=== PATIENT | male | born 1990 | race Caucasian/White ===

== ENCOUNTER 2017-06-09 12:55 | Emergency (ER) | payer OTHER ==
[~2017-06-09] VITALS: Ht 165.1 cm; Wt 65.8 kg
[~2017-06-09 12:55] MED LIST: ACET500 PO; ALBIPROI INH; ALBU90OI INH; ALBU90OI61 INH; ATOM40; ATOM60; ATOM60 PO; AZIT200SU PO; AZIT500 PO; CEPH500 PO; CLAR500 PO; CLIN300 PO; CODACE30 PO; CODACEE120 PO; CYCL10; DOXY100 PO; ESCI10 PO; GUAI1200ER PO; HYDACE5 PO; IBUP600 PO; IBUP800 PO; IPRAOI; LEXAPRO; PRED15SY PO; PRED20 PO; PROM25 PO; RISP.25; RXALBOI INH; RXCODACET PO; RXHYDACE PO; SERT100; SULTRIDS PO; TRAZ50
[2017-06-09] MEDS ORDERED: ALBU90OI INH (14:20)
[2017-06-09] MEDS ORDERED: Cheratussin AC118 ML PO (14:20)
[2018-03-13] MEDS ORDERED: Cleocin HCl300 MG PO (00:49)
== END 2017-06-09 14:24 | disposition home or self-care (01) ==
LOC: ER 12:55
DX: R05 Cough (principal); Z88.2 Allergy status to sulfonamides; Z88.0 Allergy status to penicillin; F17.200 Nicotine dependence, unspecified, uncomplicated
CPT/HCPCS: 71046; 94640; 99283

== ENCOUNTER 2017-06-22 08:07 | Emergency (ER) | payer OTHER ==
[~2017-06-22] VITALS: Ht 162.6 cm; Wt 63.5 kg
[~2017-06-22 08:07] MED LIST changes: +Cheratussin AC118 ML PO
[2017-06-22] MEDS ORDERED: Norco 5-325 Ta1 EACH PO (09:24)
[2017-06-22] MEDS ORDERED: CEPH500 PO (09:24)
[2018-03-13] MEDS ORDERED: Cleocin HCl300 MG PO (00:49)
== END 2017-06-22 09:30 | disposition home or self-care (01) ==
LOC: ER 08:07
DX: S80.212A Abrasion, left knee, initial encounter (principal); S60.512A Abrasion of left hand, initial encounter; Z88.2 Allergy status to sulfonamides; Z88.0 Allergy status to penicillin; I50.9 Heart failure, unspecified; J45.909 Unspecified asthma, uncomplicated; F17.200 Nicotine dependence, unspecified, uncomplicated; V28.4XXA Motorcycle driver injured in noncollision transport accident in traffic accident, initial encounter
CPT/HCPCS: 73130; 73562-LT; 90471; 90714; 99283

== ENCOUNTER 2017-09-08 19:10 | Emergency (ER) | payer OTHER ==
[~2017-09-08] VITALS: Ht 180.3 cm; Wt 65.8 kg
[~2017-09-08 19:10] MED LIST changes: +Norco 5-325 Ta1 EACH PO
== END 2017-09-08 20:13 | disposition home or self-care (01) ==
LOC: ER 19:10
DX: S61.011A Laceration without foreign body of right thumb without damage to nail, initial encounter (principal); F17.210 Nicotine dependence, cigarettes, uncomplicated; J45.909 Unspecified asthma, uncomplicated; W26.8XXA Contact with other sharp object(s), not elsewhere classified, initial encounter
CPT/HCPCS: 12001; 90471; 90714; 99282

== ENCOUNTER 2017-10-15 00:56 | Emergency (ER) | payer OTHER | END 2017-10-15 01:38 | disposition left against medical advice (07) | LOC: ER 00:56 | DX: Z53.21 Procedure and treatment not carried out due to patient leaving prior to being seen by health care provider (principal) ==

== ENCOUNTER 2017-12-20 19:52 | Emergency (ER) | payer OTHER ==
[~2017-12-20] VITALS: Ht 180.3 cm; Wt 65.8 kg
[2017-12-20 20:33] LABS: Source, Urine Clean Catch
[2017-12-20 20:38] LABS: Appearance, Urine Clear (Clear); Blood, Urine Neg (Neg); Color, Urine Amber (P-Yellow); Glucose Qualitative, Urine Neg (Neg); Ketones, Urine 1+ (Neg); Leukocyte Esterase, Urine 1+ (Neg); Nitrite, Urine Pos (Neg); Protein, Urine 1+ (Neg); Specific Gravity, Urine 1.015 (1.003-1.022); Urobilinogen, Urine 4+ (Normal)
[2017-12-20 20:49] LABS: Bilirubin, Urine 2+ (Neg)
[2017-12-20 20:50] LABS: Amorphous Light (0-Heavy); Bacteria Few /hpf; Calcium Oxalate Crystals Few /hpf; Mucus Light (0-Heavy); Red Blood Cells, Urine Not Seen /hpf (0-2); Squamous Epithelial Cells Not Seen /hpf (Few)
[2017-12-20 20:51] LABS: BASOPHILS ABSOLUTE AUTO 0.05 K/mm3 (0.00-0.23); BASOPHILS PERCENT AUTO 1 % (0-2); EOSINOPHILS PERCENT AUTO 2 % (0-6); Hemoglobin 17.7 g/dL (13.5-17.5); IMMATURE GRAN ABSOLUTE AUTO 0.03 K/mm3 (0.00-0.10); IMMATURE GRAN PERCENT AUTO 0 % (0-1); LYMPHOCYTES ABSOLUTE AUTO 4.89 K/mm3 (0.84-5.20); LYMPHOCYTES PERCENT AUTO 56 % (21-46); MONOCYTES ABSOLUTE AUTO 0.88 K/mm3 (0.16-1.47); MONOCYTES PERCENT AUTO 10 % (4-13); Mean Corpuscular HGB 30.6 pg (26.0-34.0); Mean Corpuscular HGB Conc 34.7 g/dL (31.5-36.5); Mean Corpuscular Volume 88 fL (80-100); Mean Platelet Volume 11.2 fL (9.1-12.4); NEUTROPHILS ABSOLUTE AUTO 2.64 K/mm3 (1.96-9.15); NEUTROPHILS PERCENT AUTO 30 % (41-73); Platelet Count 109 K/mm3 (150-400); RDW Coefficient Variation 12.7 % (11.7-14.2); RDW Standard Deviation 41.4 fL (35.1-46.3); Red Blood Cell Count 5.79 M/mm3 (4.30-5.90); White Blood Cell Count 8.69 K/mm3 (4.00-11.30)
[2017-12-20 21:26] LABS: Albumin, Blood 3.4 g/dL (3.4-5.0); Albumin/Globulin Ratio 0.9 (0.8-1.8); Alk Phos 324 U/L (50-136); Anion Gap 7 mmol/L (6-16); Aspartate Aminotrans (AST/SGOT 616 U/L (12-37); Bilirubin, Total 2.9 mg/dL (0.1-1.0); Blood Urea Nitrogen 11 mg/dL (8-24); Bun/Creatinine Ratio 10.8 (12.0-20.0); CO2, Blood 28 mmol/L (21-32); Calcium, Blood 8.5 mg/dL (8.5-10.1); Chloride, Blood 102 mmol/L (98-108); Creatinine, Blood 1.02 mg/dL (0.60-1.20); Globulin, Blood 3.9 g/dL (2.2-4.0); Glomerular Filtration Rate >60 (60-); Glucose, Blood 61 mg/dL (70-99); Sodium, Blood 137 mmol/L (136-145); Total Protein, Blood 7.3 g/dL (6.4-8.2)
[2017-12-20 21:37] LABS: Alanine Aminotransfer (ALT/SGP 1285 U/L (12-78)
[2017-12-20] MEDS ORDERED: Cipro500 MG PO (23:47)
[2017-12-20] MEDS ORDERED: PROM25 PO (23:47)
[2017-12-22 12:27] LABS: HIV SCREEN 4TH GENERATION WRFX Non Reactive (Non Reactive)
[2017-12-23 02:16] LABS: HBSAG SCREEN Negative (Negative); HEP A AB, IGM Negative (Negative); HEP B CORE AB, IGM Negative (Negative); HEP C VIRUS AB >11.0 (0.0-0.9)
== END 2017-12-20 23:56 | disposition home or self-care (01) ==
LOC: ER 19:52
PROVIDERS: Emergency Medicine
DX: N30.90 Cystitis, unspecified without hematuria (principal); K75.9 Inflammatory liver disease, unspecified; J45.909 Unspecified asthma, uncomplicated; F17.200 Nicotine dependence, unspecified, uncomplicated; Z88.2 Allergy status to sulfonamides; Z91.030 Bee allergy status; Z88.0 Allergy status to penicillin
CPT/HCPCS: 36415; 76705; 80053; 80074; 81001; 83690; 85025; 87086; 87389; 99284-25

== ENCOUNTER 2018-05-27 02:45 | Emergency (ER) | payer OTHER ==
[~2018-05-27] VITALS: Ht 167.6 cm; Wt 70.3 kg
[~2018-05-27 02:45] MED LIST changes: +Cipro500 MG PO; +Cleocin HCl300 MG PO
== END 2018-05-27 03:23 | disposition left against medical advice (07) ==
LOC: ER 02:45
DX: Z53.21 Procedure and treatment not carried out due to patient leaving prior to being seen by health care provider (principal)
CPT/HCPCS: 99281

== ENCOUNTER 2018-11-07 15:21 | Emergency (ER) | payer OTHER ==
[~2018-11-07] VITALS: Ht 177.8 cm; Wt 65.8 kg
[2018-11-07] MEDS ORDERED: AZIT250 PO (17:28)
== END 2018-11-07 17:40 | disposition home or self-care (01) ==
LOC: ER 15:21
DX: J45.909 Unspecified asthma, uncomplicated (principal); J20.9 Acute bronchitis, unspecified; F17.210 Nicotine dependence, cigarettes, uncomplicated
CPT/HCPCS: 36415; 71046; 99283-25

== ENCOUNTER 2019-03-10 19:21 | Emergency (ER) | payer OTHER ==
[~2019-03-10] VITALS: Ht 175.3 cm; Wt 65.8 kg
[~2019-03-10 19:21] MED LIST changes: +AZIT250 PO
== END 2019-03-10 20:19 | disposition home or self-care (01) ==
LOC: ER 19:21
DX: S20.311A Abrasion of right front wall of thorax, initial encounter (principal); F17.200 Nicotine dependence, unspecified, uncomplicated; Z88.2 Allergy status to sulfonamides; Z91.030 Bee allergy status; Z88.0 Allergy status to penicillin; X58.XXXA Exposure to other specified factors, initial encounter
CPT/HCPCS: 99282

== ENCOUNTER 2019-04-21 22:48 | Emergency (ER) | payer OTHER ==
[~2019-04-21] VITALS: Ht 177.8 cm; Wt 68.0 kg
[2019-04-21] MEDS ORDERED: CLIN300 PO (23:04)
[2019-06-28] MEDS ORDERED: Cleocin HCl300 MG PO (03:02)
== END 2019-04-21 23:15 | disposition home or self-care (01) ==
LOC: ER 22:48
DX: K04.7 Periapical abscess without sinus (principal); K02.9 Dental caries, unspecified; F17.210 Nicotine dependence, cigarettes, uncomplicated; Z88.2 Allergy status to sulfonamides; Z91.030 Bee allergy status; Z88.0 Allergy status to penicillin
CPT/HCPCS: 99282

== ENCOUNTER 2020-07-07 08:38 | Inpatient (IN) | payer OTHER ==
[~2020-07-07] VITALS: Ht 177.8 cm; Wt 68.0 kg
[~2020-07-07 08:38] MED LIST changes: +DOXYCYCLINE HY200 MG PO
[2020-07-07 10:15] LABS: BASOPHILS ABSOLUTE AUTO 0.04 K/mm3 (0.00-0.23); BASOPHILS PERCENT AUTO 1 % (0-2); EOSINOPHILS ABSOLUTE AUTO 0.15 K/mm3 (0.00-0.68); EOSINOPHILS PERCENT AUTO 2 % (0-6); Hematocrit 51.6 % (37.0-53.0); Hemoglobin 17.2 g/dL (13.5-17.5); IMMATURE GRAN ABSOLUTE AUTO 0.02 K/mm3 (0.00-0.10); IMMATURE GRAN PERCENT AUTO 0 % (0-1); LYMPHOCYTES ABSOLUTE AUTO 2.02 K/mm3 (0.84-5.20); LYMPHOCYTES PERCENT AUTO 26 % (21-46); MONOCYTES ABSOLUTE AUTO 0.66 K/mm3 (0.16-1.47); MONOCYTES PERCENT AUTO 8 % (4-13); Mean Corpuscular HGB 30.3 pg (26.0-34.0); Mean Corpuscular HGB Conc 33.3 g/dL (31.5-36.5); Mean Corpuscular Volume 91 fL (80-100); NEUTROPHILS ABSOLUTE AUTO 4.98 K/mm3 (1.96-9.15); NEUTROPHILS PERCENT AUTO 63 % (41-73); RDW Coefficient Variation 12.6 % (11.7-14.2); RDW Standard Deviation 42.3 fL (35.1-46.3); Red Blood Cell Count 5.67 M/mm3 (4.30-5.90); White Blood Cell Count 7.87 K/mm3 (4.00-11.30)
[2020-07-07 10:19] LABS: Stool Occult Blood Guaiac 1 Pos (Neg)
[2020-07-07 10:21] LABS: Alanine Aminotransfer (ALT/SGP 33 U/L (12-78); Albumin, Blood 3.9 g/dL (3.4-5.0); Albumin/Globulin Ratio 0.9 (0.8-1.8); Alk Phos 75 U/L (50-136); Anion Gap 4 mmol/L (6-16); Aspartate Aminotrans (AST/SGOT 25 U/L (12-37); Bilirubin, Total 0.7 mg/dL (0.1-1.0); Blood Urea Nitrogen 12 mg/dL (8-24); Bun/Creatinine Ratio 12.7 (12.0-20.0); CO2, Blood 29 mmol/L (21-32); Calcium, Blood 8.8 mg/dL (8.5-10.1); Chloride, Blood 105 mmol/L (98-108); Creatinine, Blood 0.94 mg/dL (0.60-1.20); Globulin, Blood 4.3 g/dL (2.2-4.0); Glomerular Filtration Rate >60 (60-); Glucose, Blood 94 mg/dL (70-99); Potassium, Blood 3.9 mmol/L (3.5-5.5); Sodium, Blood 138 mmol/L (136-145); Total Protein, Blood 8.2 g/dL (6.4-8.2)
[2020-07-07 10:35] LABS: Platelet Count 44 K/mm3 (150-400)
[2020-07-07 10:39] LABS: Source, Urine Clean Catch
[2020-07-07 11:27] LABS: Appearance, Urine Clear (Clear); Bilirubin, Urine Neg (Neg); Blood, Urine Neg (Neg); Color, Urine Yellow (P-Yellow); Glucose Qualitative, Urine Neg (Neg); Ketones, Urine Neg (Neg); Leukocyte Esterase, Urine Neg (Neg); Nitrite, Urine Neg (Neg); Protein, Urine Neg (Neg); Specific Gravity, Urine 1.015 (1.003-1.022); Urobilinogen, Urine NORM (Normal)
[2020-07-07 13:19] LABS: Hematocrit 45.5 % (37.0-53.0); Hemoglobin 15.2 g/dL (13.5-17.5)
--- NOTE | 2020-07-07 17:58 | NUR ---
DISCUSSED EKG RESULTS AND PT STATUS WITH MILY DODD. NO NEW ORDERS AT THIS TIME WILL CTM.
--- NOTE | 2020-07-07 20:04 | NUR ---
SHIFT SUMMARY- PT ADMITTED THROUGH THE ED FOR RECTAL BLEED. PT NPO WITH PLAN FOR SCOPE TOMORROW PER REPORT FROM ED RN DR MCKEON VISITED THE PT IN THE ED. PT PASSING BLOODY STOOL WITH CLOTS IN IT. UPON ARRIVAL TO MEDICAL FLOOR A REVIEW OF THE PT VITALS SHOW HR 60'S ON ARRIVAL TO THE ED 50'S PRIOR TO ADMISSION AND A HR OF 44 UPON ARRIVAL TO MEDICAL FLOOR. SPOKE TO DR ECHAVARRIA BY PHONE AND RECIEVED ORDER FOR EKG AND TELE FOR THE PT TO MONITOR HR MORE CLOSELY. DR ECHAVARRIA CAME TO SEE THE PT PRIOR TO SHIFT CHANGE. PT IN BED CALL LIGHT IN REACH NO S&S OF DISTRESS NOTED AT THE TIME OF BEDSIDE RPEORT. PHOTOS TAKEN OF THE PT LEFT NASH SOME SORT OF RASH IS PRESENT THERE DR ECHAVARRIA IS AWARE. PASSED ALL ON IN REPORT TO NIGHT RN.
[2020-07-07 21:03] LABS: Hematocrit 48.1 % (37.0-53.0); Hemoglobin 16.1 g/dL (13.5-17.5)
--- NOTE | 2020-07-08 04:20 | NUR ---
BUILDING MOVER SUMMARY A/OX4, IND IN ROOM. CONTINUES TO HAVE BLOODY STOOLS WITH CLOTS PRESENT. DENIES PAIN OR SOB. PLAN IS TO HAVE SCOPE WITH DR. MCKEON THIS AFTERNOON. CURRENTLY NPO EXCEPT FOR SIPS AND CHIPS. VSS, NO ACUTE CHANGES AT THIS TIME. BED IN LOWEST POSITION WITH CALL LIGHT IN REACH. WILL CONTINUE TO MONITOR AND REPORT TO ONCOMING RN.
[2020-07-08 04:38] LABS: Influenza A, PCR Negative (NEGATIVE); Influenza B, PCR Negative (NEGATIVE); Resp Syncytial Virus, PCR Negative (NEGATIVE); SARS-Cov-2 (COVID-19) PCR, MMC Negative (NEGATIVE)
[2020-07-08 05:15] LABS: BASOPHILS ABSOLUTE AUTO 0.05 K/mm3 (0.00-0.23); BASOPHILS PERCENT AUTO 1 % (0-2); EOSINOPHILS ABSOLUTE AUTO 0.27 K/mm3 (0.00-0.68); EOSINOPHILS PERCENT AUTO 4 % (0-6); Hematocrit 45.9 % (37.0-53.0); Hemoglobin 15.6 g/dL (13.5-17.5); IMMATURE GRAN ABSOLUTE AUTO 0.02 K/mm3 (0.00-0.10); IMMATURE GRAN PERCENT AUTO 0 % (0-1); LYMPHOCYTES PERCENT AUTO 33 % (21-46); MONOCYTES ABSOLUTE AUTO 0.67 K/mm3 (0.16-1.47); MONOCYTES PERCENT AUTO 11 % (4-13); Mean Corpuscular HGB 30.6 pg (26.0-34.0); Mean Corpuscular Volume 90 fL (80-100); NEUTROPHILS ABSOLUTE AUTO 3.22 K/mm3 (1.96-9.15); NEUTROPHILS PERCENT AUTO 51 % (41-73); RDW Coefficient Variation 12.6 % (11.7-14.2); RDW Standard Deviation 41.8 fL (35.1-46.3); White Blood Cell Count 6.33 K/mm3 (4.00-11.30)
[2020-07-08 05:28] LABS: Platelet Count 37 K/mm3 (150-400)
[2020-07-08 05:38] LABS: Anion Gap 5 mmol/L (6-16); Blood Urea Nitrogen 8 mg/dL (8-24); Bun/Creatinine Ratio 9.3 (12.0-20.0); CO2, Blood 26 mmol/L (21-32); Calcium, Blood 8.4 mg/dL (8.5-10.1); Chloride, Blood 108 mmol/L (98-108); Creatinine, Blood 0.86 mg/dL (0.60-1.20); Glomerular Filtration Rate >60 (60-); Glucose, Blood 111 mg/dL (70-99); Magnesium, Blood 2.1 mg/dL (1.6-2.4); Sodium, Blood 139 mmol/L (136-145)
--- NOTE | 2020-07-08 12:17 | NUR ---
PATIENT CALLED ME INTO HIS ROOM AT APPROX 1200. HE INSISTED THAT HE WAS LEAVING THE HOSPITAL, THAT IF I DID NOT REMOVE HIS IV, HE WOULD PULL IT OUT HIMSELF. I CALLED DR RICO AND INFORMED HIM. HE INSTRUCTED TO HAVE THE PATIENT CALL THE OFFICE FOR A F/U APPOINTMENT WITHIN A WEEK. PATIENT'S IV REMOVED, TELE REMOVED AND RETURNED TO PCU TELE MONITOR. AMA FORM SIGNED BY PATIENT. PATIENT INSTRUCTED TO FOLLOW-UP WITH [facility] WITHIN A WEEK PER DR RICO. PATIENT STATED UNDERSTANDING. PATIENT LEFT HOSPITAL AT 1205, AMBULATING OUT BY HIMSELF.
--- NOTE | 2020-07-08 13:12 | NUR ---
ADMIT: 07/07/20 DISCHARGE: 07/08/20 DX:Rectal Bleeding CC: [email or web address] CONSTANCE CALL: Pt at home RESIDENCE: home CAREGIVER: self DX: new pt DME: none CCM: none HOME HEALTH: none SUMMARY: Admit 07/07/20 07/08/20 Left AMA, scope was scheduled. Did not get to meet with patient prior to him leaving. cp 30-year-old male here today with 3 days of hematochezia with up to 5 bloody bowel movements a day.
== END 2020-07-08 12:06 | disposition left against medical advice (07) | DRG 379 ==
LOC: ER 08:38 → MEDS 12:54 → ERHOLD 12:54 → MEDS 16:26
PROVIDERS: Internal Medicine Gastroenterology; Physician Assistant; ADMIT Internal Medicine
DX: K92.1 Melena (principal); J45.909 Unspecified asthma, uncomplicated; D69.6 Thrombocytopenia, unspecified; F19.10 Other psychoactive substance abuse, uncomplicated; Z20.822 Contact with and (suspected) exposure to COVID-19; F17.210 Nicotine dependence, cigarettes, uncomplicated; Z53.29 Procedure and treatment not carried out because of patient's decision for other reasons; Z88.0 Allergy status to penicillin; Z88.2 Allergy status to sulfonamides
CPT/HCPCS: 0241U; 36415; 74176; 80048; 80053; 81003; 82272; 83690; 83735; 85014; 85018; 85025; 87015; 87045; 87046; 87177; 87205; 87209; 87493; 87899; 93005; 93010; 96360; 99284-25; A9270; J7030

== ENCOUNTER 2021-12-01 01:48 | Inpatient (IN) | payer OTHER ==
[~2021-12-01] VITALS: Ht 175.3 cm; Wt 70.6 kg
[~2021-12-01 01:48] MED LIST changes: +CLIN150 PO
[2021-12-01 02:51] LABS: BASOPHILS ABSOLUTE AUTO 0.09 K/mm3 (0.00-0.23); BASOPHILS PERCENT AUTO 1 % (0-2); EOSINOPHILS ABSOLUTE AUTO 0.27 K/mm3 (0.00-0.68); EOSINOPHILS PERCENT AUTO 2 % (0-6); Hematocrit 53.9 % (37.0-53.0); Hemoglobin 18.5 g/dL (13.5-17.5); IMMATURE GRAN ABSOLUTE AUTO 0.05 K/mm3 (0.00-0.10); IMMATURE GRAN PERCENT AUTO 0 % (0-1); LYMPHOCYTES ABSOLUTE AUTO 2.33 K/mm3 (0.84-5.20); LYMPHOCYTES PERCENT AUTO 20 % (21-46); MONOCYTES ABSOLUTE AUTO 0.76 K/mm3 (0.16-1.47); MONOCYTES PERCENT AUTO 7 % (4-13); Mean Corpuscular HGB 30.3 pg (26.0-34.0); Mean Corpuscular HGB Conc 34.3 g/dL (31.5-36.5); Mean Corpuscular Volume 88 fL (80-100); NEUTROPHILS ABSOLUTE AUTO 8.15 K/mm3 (1.96-9.15); NEUTROPHILS PERCENT AUTO 70 % (41-73); RDW Coefficient Variation 12.5 % (11.7-14.2); RDW Standard Deviation 40.5 fL (35.1-46.3); Red Blood Cell Count 6.11 M/mm3 (4.30-5.90); White Blood Cell Count 11.65 K/mm3 (4.00-11.30)
[2021-12-01 02:55] LABS: Platelet Count 45 K/mm3 (150-400)
[2021-12-01 03:14] LABS: Albumin, Blood 3.6 g/dL (3.4-5.0); Albumin/Globulin Ratio 0.9 (0.8-1.8); Bilirubin, Total 0.5 mg/dL (0.1-1.0); Calcium, Blood 8.5 mg/dL (8.5-10.1); Creatinine, Blood 1.12 mg/dL (0.60-1.20); Potassium, Blood 3.2 mmol/L (3.5-5.5); Total Protein, Blood 7.6 g/dL (6.4-8.2)
[2021-12-01 04:13] LABS: Influenza A, PCR NEGATIVE (NEGATIVE); Influenza B, PCR NEGATIVE (NEGATIVE); Resp Syncytial Virus, PCR NEGATIVE (NEGATIVE); SARS-Cov-2 (COVID-19) PCR, MMC NEGATIVE (NEGATIVE)
--- NOTE | 2021-12-01 06:39 | NUR ---
PT ARRIVES TO ICU VIA GURNEY AT 0600. HE IS TRANSFERRED FULL LIFT TO BED. PT HAS HIS EYES CLOSED, BUT RESPONDS APPROPRIATELY WITH SOME STIM TO WHERE HE IS AND HIS BIRTHDATE. PT IS ON AIRVO, 50L, 77%FIO2 AND SPO2 IN MID 90'S. LS CLEAR, ABSENT RLL. HEMATOMA ON L EYE NOTED, DRIED BLOOD AROUND NOSE AND MOUTH CLEANED. PT HAS SCATTERED MINOR BRUISES AND SCABS OVER BODY. PERRL 2MM. WILL INITIATE ADMIT ORDERS AND REPORT TO ONCOMING SHIFT.
[2021-12-01 07:03] LABS: Albumin, Blood 3.3 g/dL (3.4-5.0); Albumin/Globulin Ratio 0.9 (0.8-1.8); Bilirubin, Total 0.8 mg/dL (0.1-1.0); Bun/Creatinine Ratio 22.9 (12.0-20.0); Calcium, Blood 8.5 mg/dL (8.5-10.1); Creatinine, Blood 0.92 mg/dL (0.60-1.20); Globulin, Blood 3.5 g/dL (2.2-4.0); Potassium, Blood 3.6 mmol/L (3.5-5.5); Total Protein, Blood 6.8 g/dL (6.4-8.2)
--- NOTE | 2021-12-01 07:50 | NUR ---
ASSUMED CARE: REPORT RECEIVED FROM RAMOS Ribeiro RN. ASSUMED CARE OF THIS PT AT APPROX 0700 PER REPORT, THE PT WAS ABLE TO AWAKEN TO PAINFUL STIMULUS & STATE HE IS AT "[facility]." FOR THIS RN, THE PT IS NOT OPENING EYES SPONTANEOUSLY OR FOLLOWING DIRECTIONS, HE WITHDRAWS FROM PAINFUL STIMULUS & DEMONSTRATES GROSS MOVEMENT OF ALL EXTREMITIES. LS ARE COARSE T/O, RUB NOTED RLL. PT ON AIRVO W/ SETTINGS: 50 L/MIN & 75% FIO2, O2 SATS > 92%. MONITOR SHOWS SR W/ HR 80s, BP STABLE. NPO R/T AMS. NO URINARY VOID SINCE ARRIVAL TO ICU, NEED URINE SPECIMEN FOR UTOX. SKIN OVERALL INTACT. BRUISING/ SWELLING NOTED TO LEFT EYELID. DRIED BLOOD AROUND NARES R/T NOSEBLEED PRIOR TO ADMISSION. Q2H REPOSITIONING TO MAINTAIN SKIN INTEGRITY. WILL CONTINUE TO MONITOR & UPDATE NEEDED.
--- NOTE | 2021-12-01 09:22 | NUR ---
UPDATE / DR WALLACE: VISITORS HAVE COME TO BEDSIDE. THEY HAVE BEGUN SPEAKING TO THE PT AT WHICH TIME HE HAS BECOME INCREASINGLY AGITATED & IS THREATENING TO LEAVE. HE BEGINS TO REMOVE HIS AIRVO CANNULA & STS THAT WE ARE "TRYING TO KILL" HIM. WHILE AGITATED, HE BEGINS TO COUGH & PRODUCES APPROX 100 ML DEBORA RED BLOOD. VISITORS ARE UPSET AT THIS TIME DESPITE REDIRECTION FROM STAFF. URSULA Sanchez, CUT IN WORKER, IS AT BEDSIDE & HAS REQUESTED THAT ALL VISITORS STEP OUTSIDE OF THE ROOM W/ HIM THEIR PRESENCE APPEARS TO BE ESCALATING THE PT & WORSENING THE SITUATION IN GENERAL. THEY HAVE STEPPED OUTSIDE OF THE UNIT & PER URSULA, NO MORE VISITORS WILL BE ALLOWED AT BEDSIDE FOR NOW, TO BE REEVALUATED NEEDED. THE VISITORS ARE AGREEABLE TO THIS THEY DO NOT WANT TO WORSEN THE PT's CONDITION OR AGITATION. DR WALLACE ALSO TO BEDSIDE DURING THIS TIME. THE PT HAS BEGUN TO CALM W/ REDUCED BEDSIDE STIMULUS & IS REQUESTING WATER. SHE STS OKAY FOR SINGLE ICE CHIPS IF IT CALMS THE PT. CT RESULTS NOW BACK, SHOWS POSSIBLE HEMORRHAGE. DISCUSSED RESULTS & PT's COUGHING OF BLOOD, STAT CBC ORDERED. THIS RN ALSO REQUESTS PRN MEDICATIONS FOR ANXIETY/ AGITATION THE PT HAS BEEN THREATENING TO LEAVE AMA DURING THIS INSTANCE. ALSO DISCUSSED POSSIBILITY OF DAIRY ASSOCIATE CONSULTATION R/T PULMONARY HEMORRHAGE & EXTENSIVE PULMONARY HX. DR WALLACE STS SHE WILL DISCUSS THIS W/ HER ATTENDING PROVIDER DR HOLMAN & PLACE ORDERS IF NEEDED.
[2021-12-01 09:45] LABS: BASOPHILS ABSOLUTE AUTO 0.07 K/mm3 (0.00-0.23); BASOPHILS PERCENT AUTO 0 % (0-2); EOSINOPHILS ABSOLUTE AUTO 0.08 K/mm3 (0.00-0.68); EOSINOPHILS PERCENT AUTO 0 % (0-6); Hematocrit 47.6 % (37.0-53.0); Hemoglobin 16.6 g/dL (13.5-17.5); IMMATURE GRAN ABSOLUTE AUTO 0.07 K/mm3 (0.00-0.10); IMMATURE GRAN PERCENT AUTO 0 % (0-1); LYMPHOCYTES ABSOLUTE AUTO 1.25 K/mm3 (0.84-5.20); LYMPHOCYTES PERCENT AUTO 7 % (21-46); MONOCYTES ABSOLUTE AUTO 1.43 K/mm3 (0.16-1.47); MONOCYTES PERCENT AUTO 8 % (4-13); Mean Corpuscular HGB 30.7 pg (26.0-34.0); Mean Corpuscular HGB Conc 34.9 g/dL (31.5-36.5); Mean Corpuscular Volume 88 fL (80-100); Mean Platelet Volume 12.8 fL (9.1-12.4); NEUTROPHILS ABSOLUTE AUTO 16.29 K/mm3 (1.96-9.15); NEUTROPHILS PERCENT AUTO 85 % (41-73); RDW Coefficient Variation 12.5 % (11.7-14.2); RDW Standard Deviation 40.5 fL (35.1-46.3); White Blood Cell Count 19.19 K/mm3 (4.00-11.30)
[2021-12-01 09:56] LABS: Platelet Count 37 K/mm3 (150-400)
--- NOTE | 2021-12-01 10:23 | NUR ---
Kelechi WALLACE & RIVER: PROVIDERS AT BEDSIDE TO EVAL PT. THEY WOULD LIKE PRN ATIVAN TO BE D/C'd & PRECEDEX TO BE USED FOR SEDATION IF NEEDED INSTEAD. ONE UNIT PLTs ORDERED FOR CRITICAL LOW VALUE ON F/U CBC. RECHECK PLT COUNT 1 HR AFTER TRANSFUSION, SERIAL CBC ORDERED Q4H FOR MONITORING. PROVIDERS HAVE GIVEN PT's AUNT, FRANCES, AN UPDATE & SHE HAS PROVIDED CONSENT FOR THIS RN TO GIVE BLOOD PRODUCTS THE PT IS AGAIN SOMNOLENT & UNABLE TO ANSWER QUESTIONS. LR RATE INCREASED TO 250 ML/HR.
[2021-12-01 13:44] LABS: BASOPHILS ABSOLUTE AUTO 0.03 K/mm3 (0.00-0.23); BASOPHILS PERCENT AUTO 0 % (0-2); EOSINOPHILS ABSOLUTE AUTO 0.12 K/mm3 (0.00-0.68); EOSINOPHILS PERCENT AUTO 1 % (0-6); Hematocrit 41.2 % (37.0-53.0); Hemoglobin 14.2 g/dL (13.5-17.5); IMMATURE GRAN ABSOLUTE AUTO 0.04 K/mm3 (0.00-0.10); IMMATURE GRAN PERCENT AUTO 0 % (0-1); LYMPHOCYTES ABSOLUTE AUTO 1.24 K/mm3 (0.84-5.20); LYMPHOCYTES PERCENT AUTO 10 % (21-46); MONOCYTES ABSOLUTE AUTO 1.03 K/mm3 (0.16-1.47); MONOCYTES PERCENT AUTO 9 % (4-13); Mean Corpuscular HGB 30.5 pg (26.0-34.0); Mean Corpuscular HGB Conc 34.5 g/dL (31.5-36.5); Mean Corpuscular Volume 88 fL (80-100); Mean Platelet Volume 12.2 fL (9.1-12.4); NEUTROPHILS ABSOLUTE AUTO 9.52 K/mm3 (1.96-9.15); NEUTROPHILS PERCENT AUTO 79 % (41-73); RDW Coefficient Variation 12.7 % (11.7-14.2); RDW Standard Deviation 41.1 fL (35.1-46.3); Red Blood Cell Count 4.66 M/mm3 (4.30-5.90); White Blood Cell Count 11.98 K/mm3 (4.00-11.30)
--- NOTE | 2021-12-01 13:45 | NUR ---
UDPATE: VISITOR AT BESIDE IS DELIA, WHO IS THE MOTHER OF THE PT's 15 Y/O SON. DURING THIS TIME THE PT HAS AWOKEN & IS ORIENTED TO SURROUNDINGS, FORGETFUL OF CIRCUMSTANCES THAT BROUGHT HIM TO THE HOSPITAL & REMAINS PARANOID, STATING THAT SOMEONE HAS "TRIED TO KILL HIM." DURING THIS TIME HE IS CLEAR THAT HE WOULD LIKE NO VISITORS TO BE ALLOWED AT BEDSIDE BESIDES DELIA & THEIR SON. HE IS ALSO ABLE TO TOLERATE SINGLE ICE CHIPS WELL AT THIS TIME.
[2021-12-01 14:01] LABS: Platelet Count 40 K/mm3 (150-400)
--- NOTE | 2021-12-01 18:04 | NUR ---
SHIFT SUMMARY: SINCE PRIOR UPDATES, THE PT HAS BEEN ABLE TO AWAKEN MORE & IS OVERALL PLEASANT W/ STAFF. HE STS THAT HE WOULD LIKE TO REFUSE HIS ABX THIS EVENING, BUT IS RECEPTIVE TO THIS RN EXPLAINING THE PURPOSE OF ABX & IS AGREEABLE TO RECEIVING THEM AT THAT TIME. LS ARE DIM IN BASES, PT TRANSITIONED FROM AIRVO TO 2L NC AT APPROX 1715 & IS TOLERATING WELLW / O2 SATS > 92%. MONITOR SHOWS SR W/ HR 70-80s, BP STABLE. AFTER SPEAKING W/ PROVIDER ABOUT PT's IMPROVED MENTATION & PASSED BEDSIDE SWALLOW EVAL, A DINNER TRAY HAS BEEN ORDERED & THE PT IS TOLERATING PO INTAKE WELL. HE HAS BEEN ABLE TO STAND AT BEDSIDE & VOID URINE W/ 1 STAFF ASSIST. URINE IS DARK ROSS & CONCENTRATED, THE PT HAS CONTINUOUS IVFs INFUSING & IS NOW TAKING PO FLUIDS. SKIN OVERALL INTACT, LARGE PSORIATIC PLAQUE NOTED TO LLE. PT REQUESTS THAT SCDs BE REMOVED FOR A BREAK R/T THIS. WILL CONTINUE TO MONITOR & REPORT OFF TO ONCOMING RN.
[2021-12-01 18:16] LABS: U Amphetamine Screen DETECTED; U Methamphetamine Screen DETECTED
[2021-12-01 18:17] LABS: U Barbituate Screen Not Detected; U Benzodiazapine Screen DETECTED; U Buprenorphine Screen Not Detected; U Cannabinoids Screen DETECTED; U Cocaine Screen Not Detected; U Methadone Screen Not Detected; U Opiates Screen DETECTED; U Oxycodone Screen Not Detected; U Phencyclidine Screen Not Detected; U Propoxyphene Screen Not Detected
--- NOTE | 2021-12-01 19:15 | NUR ---
ASSUMPTION OF CARE PT LYING IN BED WITH EYES CLOSED, APPEARS TO BE SLEEPING. WAKENS TO VERBAL STIMULI AND SHOULDER SHAKE. OPENS EYES, BUT CLOSES THEM QUICKLY. HE MAKES PURPOSEFUL MOVEMENT WITH ALL EXTREMITIES ALTHOUGH IT TAKES MULTIPLE TIMES ASKING TO GET PHYSICAL AND VERBAL RESPONSES. HE IS ABLE TO STATE HIS NAME AND THAT HE IS AT THE HOSPITAL. HE HAS RECEIVED MULTIPLE PHONE CALLS FROM VARIOUS FRIENDS AND FAMILY, HE STS "I DON'T WANT TO TALK TO ANYBODY". BED IN LOW POSITION, CALL LIGHT WITHIN REACH, DENIES NEEDS AT THIS TIME.
--- NOTE | 2021-12-02 00:07 | NUR ---
UPDATE PT SLEEPING, WAKENS TO VERBAL STIMULI. HE ANSWERS QUESTIONS APPROPRIATELY, COOPERATIVE WITH CARE. HE DECLINES FLAGYL BECAUSE HE "DOESN'T HAVE PNEUMONIA" AND "ISN'T SICK". EXPLAINED POSSIBLE ASPIRATION AND REASONING FOR ANTIBIOTIC. PT STS "OKAY THAT'S FINE, I'LL TAKE IT". HE DOES NOT WANT VISITORS OR TO TALK ON THE PHONE TO ANYONE AT THIS TIME. HE DENIES PAIN OR DISCOMFORT. HE ASKS FOR A SNACK, WHICH IS PROVIDED BUT HE IS SLEEPING AGAIN. VSS. CALL LIGHT WITHIN REACH.
--- NOTE | 2021-12-02 04:16 | NUR ---
AM LAB DRAW PT REFUSED AM LAB DRAW. EXPLAINED IMPORTANCE OF REPEAT BLOOD WORK, PT CONTINUES TO REFUSE. WILL APPROACH TOPIC AGAIN LATER THIS AM.
--- NOTE | 2021-12-02 05:24 | NUR ---
SHIFT SUMMARY PT HAS SLEPT THROUGH MOST OF NIGHT. HE WAKENS TO VERBAL STIMULI, A&OX4. HE IS ON 3L NC WITH SPO2 >95%. HE IS RECEIVING LR 250ML/HR. HE USED THE URINAL ONCE WHILE LYING DOWN, 550ML DARK ROSS URINE OUTPUT. HE DENIES PAIN OR DISCOMFORT. HIS ONLY COMPLAINT IS BEING HUNGRY. GIVEN TWO LARGE SNACKS. ENCOURAGED WATER INTAKE. PT REFUSED AM LABS. VSS THROUGHOUT SHIFT. BED IN LOW POSITION, CALL LIGHT AND BEDSIDE TABLE WITHIN REACH. WILL REPORT TO ONCOMING RN.
[2021-12-02 08:44] LABS: BASOPHILS ABSOLUTE AUTO 0.03 K/mm3 (0.00-0.23); BASOPHILS PERCENT AUTO 0 % (0-2); EOSINOPHILS ABSOLUTE AUTO 0.26 K/mm3 (0.00-0.68); EOSINOPHILS PERCENT AUTO 3 % (0-6); Hematocrit 40.9 % (37.0-53.0); Hemoglobin 14.1 g/dL (13.5-17.5); IMMATURE GRAN ABSOLUTE AUTO 0.02 K/mm3 (0.00-0.10); IMMATURE GRAN PERCENT AUTO 0 % (0-1); LYMPHOCYTES ABSOLUTE AUTO 1.35 K/mm3 (0.84-5.20); LYMPHOCYTES PERCENT AUTO 18 % (21-46); MONOCYTES ABSOLUTE AUTO 0.68 K/mm3 (0.16-1.47); MONOCYTES PERCENT AUTO 9 % (4-13); Mean Corpuscular HGB 30.6 pg (26.0-34.0); Mean Corpuscular HGB Conc 34.5 g/dL (31.5-36.5); Mean Corpuscular Volume 89 fL (80-100); NEUTROPHILS ABSOLUTE AUTO 5.21 K/mm3 (1.96-9.15); NEUTROPHILS PERCENT AUTO 69 % (41-73); RDW Coefficient Variation 12.3 % (11.7-14.2); RDW Standard Deviation 40.1 fL (35.1-46.3); Red Blood Cell Count 4.61 M/mm3 (4.30-5.90); White Blood Cell Count 7.55 K/mm3 (4.00-11.30)
[2021-12-02 08:52] LABS: Mean Platelet Volume 13.9 fL (9.1-12.4); Platelet Count 37 K/mm3 (150-400)
--- NOTE | 2021-12-02 08:57 | NUR ---
0740 DR WALLACE ROUNDED, REPORTED RESP 40S, DIAPHORETIC, TREMORS STARTING, ATIVAN ORDERED PATIENT AGREED TO HAVE LABS DRAWN, ORDERING NOW. 0846 DR HOLMAN ROUNDED, PATIENT HAS GIRLFRIEND ALBERT AND MOTHER AT BEDSIDE, GIRLFRIEND EDUCATED ON THE IMPORTANCE OF STAYING OUT OF THE BED WITH PATIENT DUE TO NEEDING THE CORDS AND LINES AVAILABLE AND READING CORRECTLY. PATIENT RESTING NO DISTRESS
[2021-12-02 08:58] LABS: Bun/Creatinine Ratio 13.1 (12.0-20.0); Calcium, Blood 7.9 mg/dL (8.5-10.1); Creatinine, Blood 0.84 mg/dL (0.60-1.20); Potassium, Blood 3.7 mmol/L (3.5-5.5)
[2021-12-02 14:12] LABS: Platelet Count 46 K/mm3 (150-400)
--- NOTE | 2021-12-02 17:02 | NUR ---
PATIENT STATED HIS BROTHER CATRACHO (SULMA) IS THE MAIN PERSON OF CONTACT FOR ALL CALLS AND VISITORS. THIS RN ENID CALLED CATRACHO AND HE AGREED AND OKAYED HIS PHONE NUMBER BEING GIVEN OUT FOR UPDATE. CATRACHO WHITESIDE) [phone]
--- NOTE | 2021-12-02 17:07 | NUR ---
PATIENT DROWSY, WAKES AND EASILY BACK TO SLEEP, OREINTED TO SELF, PLACE, THING, PERSON. CALL LIGHT WITH IN REACH, BED ALARM ON, CIWA 8-10, MEDICATED WITH LIBRIUM, ONE UNIT PLATETS INFUSED, PLT NOW 46, DENIES CP, HEART RATE SR, BP WNL 132/86. BSU INDEPENDENT, CLEAR YELLOW URINE, PSORIASIS, LR INFUSING AT 250 INTO RIGHT FA, R AC SL, REGULAR DIET, NO NV, MULTIPLE VISITORS AND PHONE CALLS, JOSEPH APPOINTED CATRACHO HIS BROTHER (SULMA THE MAIN INFO PERSON, SULMA AGREED TO HAVE HIS NUMBER GIVEN TO CALLERS AND VISTORS FOR FOLLOW UP, AUNT FRANCES IN WITH PATIENT NOW SAYING THAT IS ALL WRONG, WILL RELAY TO PM RN, FIONA, CALL LIGHT WITH IN REACH
--- NOTE | 2021-12-02 18:28 | NUR ---
AUNT FRANCES AND PATIENT ALERT AND ORIENTED MADE A LIST OF ALLOWED VISITORS, GRANDGUERO TURCIOS, AUNT FRANCES, ANTONINA LANEY HIS SON, DELIA LANEY HIS X GIRLFRIEND, AND SANDY HIS GIRLFRIEND. RIVERA OZUNA IS THE POINT OF CONTACT FOR PHONE CALLS AND VISITORS, CATRACHO GAVE PERMISSION TO GIVE OUT HIS PHONE NUMBER TO THE CALLERS AND VISITORS.
--- NOTE | 2021-12-02 20:36 | NUR ---
ASSESSMENT/ASSUMED CARE PT SLEEPING, AWAKENS EASILY TO VERBAL STIMULI. ANSWERS QUESTIONS APPROP. MOVING SELF AROUND IN BED. PT REQUESTING FOOD STATES,"ANYTHING WILL DO". LUNGS CLEAR ON 2 LITER VIA NC, REMOVED O2 AND WILL CONT TO ASSESS NEED FOR O2. RESP EVEN AND NONLABORED. OCC DRY COUGH. HEART RATE REGULAR IN THE 70'S. BP STABLE. VOIDING CLEAR YELLOW URINE. IV TO RIGHT FOREARM WITH LR AT 250 ML/HR, SITE CLEAR. IV TO RIGHT AC SALINE LOCKED. LEFT EYE WITH BRUISING NOTED. PT GIVEN SANDWICH, FRUIT CUP AND PUDDING.
--- NOTE | 2021-12-02 20:57 | NUR ---
DR TINSLEY INTO SEE PT, PT SLEEPING. GIVEN UPDATE. PT CHANGED TO MEDICAL WITH TELE AND IV SALINE LOCKED.
[2021-12-03 04:08] LABS: Mean Platelet Volume 13.1 fL (9.1-12.4); Platelet Count 50 K/mm3 (150-400)
--- NOTE | 2021-12-03 05:19 | NUR ---
SHIFT SUMMARY PT RESTING QUIETLY DURING THE NIGHT. VSS. CHANGED FROM PCU TO MED WITH TELE BY DR TINSLEY. PT FOLLOWING INSTRUCTIONS. MOVING AND TURNING SELF IN BED. PT HAD TWO SNACKS DURING THE NIGHT AND ATE 100%. IV TO RIGHT AC DC'D PER PT REQUEST DUE TO PAIN WHILE BENDING ARM. VOIDING CLEAR YELLOW URINE VIA URINAL. DENIES PAIN OR DISCOMFORT. PLT UP TO 50 THIS AM. CIWA 2 DURING THE NIGHT. NO ACUTE CHANGE. REPORT TO ON COMING NURSE.
--- NOTE | 2021-12-03 08:27 | NUR ---
REPORT FROM [facility] RN, NO CHANGES THROUGH THE NIGHT, MAKES NEEDS KNOWN, CALL LIGHT WITH IN REACH, FRIEND AT BEDSIDE, PATIENT ALERT AND ORIENTED X4, WCTM
--- NOTE | 2021-12-03 09:02 | NUR ---
DR WALLACE ROUNDED ON PATIENT, POSSIBLE DISCHARGE TODAY
[2021-12-03] MEDS ORDERED: LACT PO (10:40)
[2021-12-03] MEDS ORDERED: LEVO750 PO (10:41)
--- NOTE | 2021-12-03 11:49 | NUR ---
DISCHARGED HOME, W/C AND FAMILY VEHICLE, EDUCATION GIVEN TO PATIENT AND HIS AUNTE FRANCES, BOTH STATED UNDERSTANDING OF FOLLOW UP APPOINTMENT AND MEDICATION EDUCATION AND CORRECTION WORKER. PLEASANT TO CARE DURING STAY
== END 2021-12-03 12:05 | disposition home or self-care (01) | DRG 917 ==
LOC: ER 01:48 → ICUW 04:30
PROVIDERS: Emergency Medicine; Family Medicine; ADMIT Internal Medicine
PROC: 5A0935A Assistance with Respiratory Ventilation, Less than 24 Consecutive Hours, High Flow/Velocity Cannula (ICD-10-PCS; principal; 2021-12-01)
PROC: 30233R1 Transfusion of Nonautologous Platelets into Peripheral Vein, Percutaneous Approach (ICD-10-PCS; 2021-12-01)
PROC: HZ2ZZZZ Detoxification Services for Substance Abuse Treatment (ICD-10-PCS; 2021-12-01)
DX: T40.601A Poisoning by unspecified narcotics, accidental (unintentional), initial encounter (principal); J96.01 Acute respiratory failure with hypoxia; G92.8 Other toxic encephalopathy; J69.0 Pneumonitis due to inhalation of food and vomit; E87.1 Hypo-osmolality and hyponatremia; R04.2 Hemoptysis; R04.89 Hemorrhage from other sites in respiratory passages; F11.13 Opioid abuse with withdrawal; Z20.822 Contact with and (suspected) exposure to COVID-19; D69.6 Thrombocytopenia, unspecified; R04.0 Epistaxis; J45.909 Unspecified asthma, uncomplicated; F41.9 Anxiety disorder, unspecified; I11.0 Hypertensive heart disease with heart failure; I50.9 Heart failure, unspecified; R45.1 Restlessness and agitation; F17.210 Nicotine dependence, cigarettes, uncomplicated; Z90.2 Acquired absence of lung [part of]; Z88.0 Allergy status to penicillin; Z88.2 Allergy status to sulfonamides; Z91.030 Bee allergy status; Z79.899 Other long term (current) drug therapy; X58.XXXA Exposure to other specified factors, initial encounter
CPT/HCPCS: 0241U; 30901; 36415; 36430; 71045; 71260; 80048; 80053; 83880; 84484; 85025; 85049; 86850; 86900; 86901; 96374; 99285-25; A9270; G0480; J1956; J2060; J3411; J3480; J7040; J7050; J7120; P9035; P9053; Q9967

== ENCOUNTER 2022-06-15 20:50 | Emergency (ER) | payer OTHER ==
[~2022-06-15] VITALS: Ht 177.8 cm; Wt 79.4 kg
[~2022-06-15 20:50] MED LIST changes: +LACT PO; +LEVO750 PO
[2022-06-15 21:15] LABS: Chloride (POC) 108 mmol/L (98-108); Creatinine (POC) 1.3 mg/dL (0.8-1.3); Glucose (ISTAT POC) 73 mg/dL (70-99); Hemoglobin (POC) 12.2 g/dL (13.5-17.5); Potassium (POC) 4.9 mmol/L (3.5-5.5); Sodium (POC) 139 mmol/L (135-148); Total CO2 (POC) 23 mmol/L (21-32)
[2022-06-15 21:33] LABS: BASOPHILS ABSOLUTE AUTO 0.02 K/mm3 (0.00-0.23); BASOPHILS PERCENT AUTO 0 % (0-2); EOSINOPHILS ABSOLUTE AUTO 0.02 K/mm3 (0.00-0.68); EOSINOPHILS PERCENT AUTO 0 % (0-6); Hematocrit 36.8 % (37.0-53.0); Hemoglobin 12.8 g/dL (13.5-17.5); IMMATURE GRAN ABSOLUTE AUTO 0.13 K/mm3 (0.00-0.10); IMMATURE GRAN PERCENT AUTO 2 % (0-1); LYMPHOCYTES ABSOLUTE AUTO 2.91 K/mm3 (0.84-5.20); LYMPHOCYTES PERCENT AUTO 50 % (21-46); MONOCYTES ABSOLUTE AUTO 0.39 K/mm3 (0.16-1.47); MONOCYTES PERCENT AUTO 7 % (4-13); Mean Corpuscular HGB 32.1 pg (26.0-34.0); Mean Corpuscular HGB Conc 34.8 g/dL (31.5-36.5); Mean Corpuscular Volume 92 fL (80-100); NEUTROPHILS ABSOLUTE AUTO 2.31 K/mm3 (1.96-9.15); NEUTROPHILS PERCENT AUTO 40 % (41-73); NRBC ABSOLUTE 0.03 K/mm3 (0.00-0.02); NRBC Auto 0.5 /100 WBC (0.0-0.2); RDW Coefficient Variation 12.7 % (11.7-14.2); RDW Standard Deviation 42.7 fL (35.1-46.3); Red Blood Cell Count 3.99 M/mm3 (4.30-5.90); White Blood Cell Count 5.78 K/mm3 (4.00-11.30)
[2022-06-15 21:43] LABS: Mean Platelet Volume 12.8 fL (9.1-12.4)
[2022-06-15 21:44] LABS: Platelet Count 27 K/mm3 (150-400)
[2022-06-15 21:47] LABS: Ethanol (Alcohol), Blood, Med <3 mg/dL
[2022-06-15 21:57] LABS: Alanine Aminotransfer (ALT/SGP 143 U/L (12-78); Albumin, Blood 3.6 g/dL (3.4-5.0); Albumin/Globulin Ratio 1.2 (0.8-1.8); Alk Phos 71 U/L (50-136); Anion Gap 7 mmol/L (6-16); Aspartate Aminotrans (AST/SGOT 282 U/L (12-37); Bilirubin, Total 1.1 mg/dL (0.1-1.0); Blood Urea Nitrogen 20 mg/dL (8-24); Bun/Creatinine Ratio 16.7 (12.0-20.0); CO2, Blood 23 mmol/L (21-32); Calcium, Blood 8.5 mg/dL (8.5-10.1); Chloride, Blood 110 mmol/L (98-108); Globulin, Blood 3.1 g/dL (2.2-4.0); Glomerular Filtration Rate 81 (60-); Glucose, Blood 78 mg/dL (70-99); Potassium, Blood 4.8 mmol/L (3.5-5.5); Sodium, Blood 140 mmol/L (136-145); Total Protein, Blood 6.7 g/dL (6.4-8.2)
[2022-06-15 22:03] LABS: International Normalized Ratio 1.39; Prothrombin Time Results 14.3 Sec (9.7-11.5)
[2022-06-15 22:05] LABS: Calcium, Ionized (POC) 0.65 mmol/L (1.10-1.46); Chloride (POC) 106 mmol/L (98-108); Creatinine (POC) 1.4 mg/dL (0.8-1.3); Glucose (ISTAT POC) 74 mg/dL (70-99); Hemoglobin (POC) 9.2 g/dL (13.5-17.5); Potassium (POC) 5.1 mmol/L (3.5-5.5); Sodium (POC) 138 mmol/L (135-148); Total CO2 (POC) 13 mmol/L (21-32)
--- NOTE | 2022-06-15 23:06 | NUR ---
Call back TOD - Spoke with Nursing Mfts and ER staff before entering room where lay. Noted his appearance before meeting with Sebastian's Grandfather and Aunt. Machine Preservative Filler was introduced to the family and prepped them for what they would see. Family was ushered in and provided space to reflect and grieve on their loved one. Family has experienced much grief in their life. Grandfather identifies humor as a coping mechanism with all the loss. Audible prayer extended to those present and family verbalized gratitude for the intervention. Family choose [facility] in [place] as the home of choice.
[2022-06-15 23:10] LABS: Source, Urine Foley catheter
[2022-06-15 23:23] LABS: Appearance, Urine Cloudy (Clear); Bilirubin, Urine Neg (Neg); Blood, Urine 5+ (Neg); Color, Urine Yellow (P-Yellow); Glucose Qualitative, Urine Neg (Neg); Ketones, Urine 3+ (Neg); Leukocyte Esterase, Urine 1+ (Neg); Nitrite, Urine Neg (Neg); Protein, Urine 3+ (Neg); Urobilinogen, Urine NORM (Normal)
[2022-06-15 23:48] LABS: U Amphetamine Screen DETECTED; U Barbituate Screen Not Detected; U Methamphetamine Screen DETECTED
[2022-06-15 23:49] LABS: U Benzodiazapine Screen Not Detected; U Buprenorphine Screen Not Detected; U Cannabinoids Screen Not Detected; U Cocaine Screen Not Detected; U Methadone Screen Not Detected; U Opiates Screen Not Detected; U Oxycodone Screen Not Detected; U Phencyclidine Screen Not Detected; U Propoxyphene Screen Not Detected
[2022-06-15 23:54] LABS: Bacteria Mod /hpf; Red Blood Cells, Urine 50-100 /hpf (0-2); Squamous Epithelial Cells Rare /hpf (Few)
== END 2022-06-16 00:08 ==
LOC: ER 20:50
PROVIDERS: Emergency Medicine
DX: I46.9 Cardiac arrest, cause unspecified (principal); I10 Essential (primary) hypertension; F17.210 Nicotine dependence, cigarettes, uncomplicated; V23.49XA Other motorcycle driver injured in collision with car, pick-up truck or van in traffic accident, initial encounter
CPT/HCPCS: 31500; 36415; 51702; 70450; 71045; 71260; 72125; 72170; 74177; 80047; 80053; 81001; 83690; 85014; 85025; 85610; 92950; 94002; G0480; J0282; J0330; Q9967